=== PATIENT | female | born 1950 | race Caucasian/White ===

== ENCOUNTER → 2021-08-02 | Outpatient (CLI) | payer BC ==
[2015-11-26 11:00] VITALS: BP 157/97
[~2021-08-02] MED LIST: ALBU2.5V8 IH; BUPR300T3 PO; ESTR0.62 PO; FLUT1DIS3 IH; LIDOCAINE 1% Multi-Dose 20 ML VIAL. INJ ONE; LIDOCAINE 2%/EPI 1:100,000 20 ML VIAL. INJ ONE; LOSA100T14 PO; METF10007 PO; METF500T16 PO; MONT10TA49 PO; OMEP40CA7 PO
--- NOTE | 2021-08-02 09:15 | RAD ---
EXAM: Stereotactic right breast biopsy; specimen radiograph; post-biopsy clip placement; unilateral p ost-biopsy mammogram. HISTORY: 70-year-old female presents for stereotactic guided biopsy of clustered microcalcifications within the 4:00 position of the right breast demonstrated on a study performed at an outside facility . TECHNIQUE AND FINDINGS: The procedure and its risks and benefits were discussed with the patient. Ris ks discussed included, but were not limited to, pain, infection, bleeding and need for repeat biopsy. The patient provided verbal and written consent. A timeout was performed. The patient was placed in a prone position of the stereotacic table and the right breast was placed i n mediolateral compression. Images were obtained and the calcifications of concern were localized usi ng stereotaxis. The skin overlying this region was then sterilely prepped and infiltrated with a few cc 1% lidocaine for local anesthesia. Deeper soft tissue anesthesia was administered with epinephrine in 1% lidocaine. A small skin incision was made and the biopsy device was advanced and appropriate p ositioning was confirmed with additional images. Subsequently, multiple core biopsy samples were obtained with vacuum assistance. A plain radiograph o f the specimen was obtained, demonstrating inclusion of the calcifications of interest. Then, a post- biospy clip was advanced to the site of biopsy using the same guidance technique. A sterile bandage was placed, and postbiopsy mammographic images were obtained and interpreted at a separate workstatio n. The post-biopsy mammogram demonstrates immediate post-biospy changes and a biopsy clip in expected po sition. The patient tolerated the procedure without difficulty and was discharged to home in stable c ondition with post-biospy care instructions. IMPRESSION: Successful stereotactic guided biopsy of clustered microcalcifications within the 4:00 po sition of the right breast and biopsy clip placement. An addendum to this report will be submitted wh en pathology results are available. Electronically signed by: Graciela Marie MD (08/02/2021 9:12 AM) [id number]
--- NOTE | 2021-08-05 13:34 | PATHOLOGY ---
[facility] Accession Number: [id number] . 01 Material submitted: . breast - RIGHT BREAST CALCIFICATIONS. Modifiers: right . 01 Clinical history: . RT BREAST CALCIFICATIONS OBTAINED 8:55AM FORMALIN 9:00AM ABNORMAL MAMMO . 02 Diagnosis: Breast tissue, right breast biopsy: - Fibroadenoma, with associated calcifications. - Moderate/florid ductal epithelial hyperplasia, focal. (JPM:pit; 08/05/2021) . [facility] 08/05/2021 0918 Local . 02 Comment: Sections of the right breast biopsy reveal a fibroadenoma measuring approximately 3 mm in greatest dimension with associated calcifications. There is no atypia or evidence of malignancy. (JPM:pit; 08/05/2021) . 02 Electronically signed: . Miguel Ángel Maradiaga MD, Pathologist NPI- [id number] . 01 Gross description: . The specimen is received in formalin, labeled "Rebecca Pestock, right breast calcifications". Received within a plastic cassette are multiple needle cores of fibrofatty tissue measuring 3.0 x 2.1 x 0.8 cm in aggregate dimensions. The specimen is submitted entirely in cassettes A1 through A4. The cold ischemic time is 5 minutes. The total formalin fixation time is 14 hours and 40 minutes. (CAA; 08/02/2021) QAC/QAC 08/02/2021 1817 Local . 02 Pathologist provided ICD-10: D24.1, N62 . 02 CPT . 371534 Specimen Comment: A courtesy copy of this report has been sent to [phone] Specimen Comment: [phone], Specimen Comment: Report sent to , DR MELENDEZ / DR IVEY Performed at: 01 [facility] [address], [place], [place] [id number] MD Ruddy Sharp MD Phone: [phone] Performed at: 02 [facility] [address] [place], [place] [id number] MD Miguel Ángel Maradiaga MD Phone: [phone]
== END | disposition home or self-care (01) ==
LOC: MAMMO 08:56
PROVIDERS: ATTEND Surgery
DX: R92.1 Mammographic calcification found on diagnostic imaging of breast (principal); R92.8 Other abnormal and inconclusive findings on diagnostic imaging of breast; I10 Essential (primary) hypertension; E11.9 Type 2 diabetes mellitus without complications; F32.9 Major depressive disorder, single episode, unspecified; Z79.899 Other long term (current) drug therapy; Z98.890 Other specified postprocedural states; Z79.84 Long term (current) use of oral hypoglycemic drugs; Z88.2 Allergy status to sulfonamides
CPT/HCPCS: 19081; 77065; J3490

== ENCOUNTER → 2021-12-04 | Outpatient (CLI) | payer BC ==
[2015-11-26 11:00] VITALS: BP 157/97
[~2021-12-04] MED LIST changes: -LIDOCAINE 1% Multi-Dose 20 ML VIAL. INJ ONE; -LIDOCAINE 2%/EPI 1:100,000 20 ML VIAL. INJ ONE
--- NOTE | 2021-12-04 14:45 | KCIC ---
EXAM: Renal sonogram. HISTORY: Renal insufficiency. TECHNIQUE: Sonographic imaging the kidneys and bladder was performed. COMPARISON: 05/09/2013. FINDINGS: The kidneys are normal in size. There is a 2.2 cm solid hyperechoic lesion within the upper pole the left kidney. There is a 1.1 cm simple cyst within the lower mid zone of the left kidney. Th e prevoid bladder volume is 371 cc. The post void bladder residual is 71 cc. The ureteral jets are chloé th seen. IMPRESSION: 1. 2.2 cm hyperechoic nodule within the superior left kidney, slightly increased in size compared to a CT performed 05/09/2013. The sonographic appearance and slow interval telephone exchange operator a greater than. In terval favors a benign angiomyolipoma. 2. 1.1 cm simple cyst within the left kidney. 3. Small post void bladder residual of 71 cc. Electronically signed by: Graciela Marie MD (12/04/2021 2:43 PM) [id number]
== END ==
LOC: KCIC US 12:26
PROVIDERS: ATTEND Internal Medicine Nephrology
DX: N28.89 Other specified disorders of kidney and ureter (principal); N28.1 Cyst of kidney, acquired; R39.198 Other difficulties with micturition
CPT/HCPCS: 76770